=== PATIENT | male | born 1975 | race Two or more races ===

== ENCOUNTER 2018-11-01 07:23 | Emergency (ER) | payer BC ==
[~2018-11-01] VITALS: Ht 167.6 cm; Wt 86.2 kg
[2018-11-01 07:33] VITALS: BP 109/76
[2018-11-01] MEDS ORDERED: METHOCARBAMOL 500 MG TAB PO ONE (08:00)
[2018-11-01] MEDS ORDERED: KETOROLAC TROMETH 60MG/2ML VIAL IM ONE (08:00)
== END 2018-11-01 08:38 | disposition home or self-care (01) ==
LOC: ER 07:23
DX: S39.012A Strain of muscle, fascia and tendon of lower back, initial encounter (principal); X58.XXXA Exposure to other specified factors, initial encounter; Y93.89 Activity, other specified; Y99.8 Other external cause status; Y92.89 Other specified places as the place of occurrence of the external cause
CPT/HCPCS: 96372; 99283; J1885

== ENCOUNTER 2020-10-31 08:12 | Emergency (ER) | payer BC ==
[~2020-10-31] VITALS: Ht 170.2 cm; Wt 83.9 kg
[2020-10-31 08:43] VITALS: BP 136/75
[2020-10-31 08:50] LABS: Basophils # (auto) 0.1 10 ^3/uL (0-0.2); Basophils % (auto) 0.9 % (0.0-2.0); Eosinophils # (auto) 0.3 10 ^3/uL (0-0.8); Eosinophils % (auto) 5.8 % (0.0-7.0); Hematocrit 43.4 % (41.0-53.0); Hemoglobin 15.6 g/dL (13.5-17.5); Lymphocytes # (auto) 2.4 10 ^3/uL (0.4-5.4); Lymphocytes % (auto) 43.9 % (10.0-50.0); Mean Corpuscular Hemoglobin 31.2 pg (28.0-32.0); Mean Corpuscular Hgb Conc. 35.8 g/dL (32.0-36.0); Monocytes # (auto) 0.3 10 ^3/uL (0-1.3); Monocytes % (auto) 6.1 % (0.0-12.0); Neutrophils # (auto) 2.4 10 ^3/uL (1.6-8.6); Neutrophils % (auto) 43.3 % (37.0-80.0); Nucleated Red Blood Cells % 0.1 %; Red Blood Cells 4.99 10^6/uL (4.5-5.90); Red Cell Distribution Width 12.7 % (11.8-14.3); White Blood Cell 5.4 10^3/uL (4.4-10.8)
[2020-10-31 08:53] LABS: Urine Bacteria NONE SEEN /hpf (None Seen); Urine Blood Negative /uL (Negative); Urine Specific Gravity 1.029 (1.001-1.035); Urine WBC <1 /hpf (0 - 3)
[2020-10-31 09:08] LABS: Albumin 4.1 g/dL (3.4-5.0); Calcium 8.1 mg/dL (8.5-10.1)
[2020-10-31 09:12] LABS: Bilirubin, Total 1.1 mg/dL (0.2-1.0); Total Protein 7.2 g/dL (6.4-8.2)
== END 2020-10-31 10:22 | disposition home or self-care (01) ==
LOC: ER 08:12
DX: M54.14 Radiculopathy, thoracic region (principal); B02.8 Zoster with other complications; K59.00 Constipation, unspecified; Z98.890 Other specified postprocedural states
CPT/HCPCS: 36415; 74022; 80053; 81001; 85025; 85049

== ENCOUNTER 2022-01-11 23:59 | Emergency (ER) | payer BC ==
[~2022-01-11] VITALS: Ht 170.2 cm; Wt 84.0 kg
[2022-01-12] MEDS ORDERED: BACDST PO (01:56)
[2022-01-12] MEDS ORDERED: DICL75TA2 PO (01:56)
[2022-01-12] MEDS ORDERED: methylPREDNISolone SOD SUCC 125 MG/2 ML VL IM ONE (02:00)
[2022-01-12] MEDS ORDERED: KETOROLAC TROMETH 30 MG/ML 1ML VIAL IM ONE (02:00)
== END 2022-01-12 03:07 | disposition home or self-care (01) ==
LOC: ER 23:59
DX: M70.51 Other bursitis of knee, right knee (principal)
CPT/HCPCS: J1885